=== PATIENT | male | born 1965 | race Caucasian/White ===

== ENCOUNTER 2018-01-20 06:15 | Inpatient (IN) | payer BC ==
[2018-01-05 17:00] VITALS: BMI 38.7
[2018-01-20] MEDS ORDERED: TAMSULOSIN HCL 0.4 MG CAP ONE (06:53)
[2018-01-20] MEDS ORDERED: DEXAMETHASONE SOD PHOSPHATE/PF 10 MG/ML SDV ONE (07:24)
[2018-01-20] MEDS ORDERED: BUPIVACAINE HCL/PF (5 MG/ML) 30 ML VIAL IJ ONE (07:25)
[2018-01-20] MEDS ORDERED: MIDAZOLAM HCL 2 MG/2 ML SINGLE DOSE VIAL ONE (07:25)
[2018-01-20] MEDS ORDERED: PROPOFOL 20 ML ONE ×2 (07:58)
[2018-01-20] MEDS ORDERED: SUCCINYLCHOLINE CHLORIDE 200 MG/10 ML VIAL ONE (07:58)
[2018-01-20] MEDS ORDERED: ROCURONIUM BROMIDE 50 MG/5 ML VIAL ONE ×2 (07:58→09:24)
[2018-01-20] MEDS ORDERED: ceFAZolin SODIUM 1 GM VIAL ONE (08:32)
[2018-01-20] MEDS ORDERED: HYDROmorphone HCL/PF 1 MG/ML AMP ONE (08:37)
--- NOTE | 2018-01-20 08:53 | HP ---
DATE OF ADMISSION: 01/20/2018 NOTE: This is a re-dictated H&P due to [facility] guidelines. Please refer to my original H&P dated June 2017 for complete details. The patient was re-examined this morning. No significant changes in physical exam or history. BRIEF HISTORY: This is a 52-year-old gentleman with a known chronically incarcerated ventral hernia for many years. This is causing him discomfort and now he wishes to have this repaired. PAST MEDICAL HISTORY: Significant for hypertension and arthritic changes. PAST SURGICAL HISTORY: No abdominal surgeries. MEDICATIONS: Allopurinol, hydrochlorothiazide. ALLERGIES: None. SOCIAL HISTORY: The patient does not smoke. He drinks socially. PHYSICAL EXAMINATION: Abdomen: Obese, soft, nontender, nondistended. He has diastasis in the upper midline. He has a chronically incarcerated ventral hernia in the midline as well. IMPRESSION/PLAN: Chronically incarcerated ventral hernia, complex ventral hernia. This is a 52-year-old gentleman becoming more symptomatic from his chronically incarcerated complex ventral hernia. Will plan for an open repair with mesh. Due to the size and generosity of the hernia will require component separation as well. The indications, alternatives and complications discussed. Questions answered. Will plan for surgery. KAMLA URIAS M.D. [id number] CC: Dr. De La Rosa
[2018-01-20] MEDS ORDERED: DEXAMETHASONE SOD PHOSPHATE 4 MG/1 ML VIAL ONE ×2 (08:57→10:00)
[2018-01-20] MEDS ORDERED: ONDANSETRON 4 MG/2 ML VIAL ONE ×2 (08:57→10:00)
[2018-01-20] MEDS ORDERED: GLYCOPYRROLATE 0.2 MG/1 ML VIAL ONE (09:47)
[2018-01-20] MEDS ORDERED: NEOSTIGMINE METHYLSULFATE 0.5 MG/ML - 10 ML MDV ONE (09:47)
[2018-01-20] MEDS: KETOROLAC TROMETHAMINE 30 MG/1 ML VIAL IVPUSH SCH ×3 (10:35→22:40)
[2018-01-20] MEDS ORDERED: ACETAMINOPHEN INJECTION 100 ML IVPB ONE (10:36)
[2018-01-20] MEDS ORDERED: KETOROLAC TROMETHAMINE 30 MG/1 ML VIAL ONE (10:36)
[2018-01-20] MEDS: ACETAMINOPHEN 1000 MG/100 ML VIAL (NON FORMULARY) IVPB SCH ×3 (10:37→22:38)
[2018-01-20] MEDS ORDERED: ONDANSETRON 4 MG/2 ML VIAL IVPUSH PRN (10:38)
[2018-01-20] MEDS ORDERED: morphine CARPU-JECT 10 MG/1 ML DISP.SYRIN IVPB PRN (10:38)
[2018-01-20] MEDS ORDERED: oxyCODONE HCL 5 MG TABLET PO PRN (10:38)
[2018-01-20] MEDS ORDERED: SODIUM CHLORIDE 1,000 ML IV SCH (10:45)
[2018-01-20] MEDS ORDERED: LACTATED RINGERS SOLUTION 1,000 ML IV SCH (10:45)
--- NOTE | 2018-01-20 11:13 | OP ---
DATE OF OPERATION: 01/20/2018 PREOPERATIVE DIAGNOSIS: A complex, chronically incarcerated ventral hernia. POSTOPERATIVE DIAGNOSIS: A complex, chronically incarcerated ventral hernia. PROCEDURE: Bilateral component separation, repair of complex, chronically incarcerated ventral hernia with mesh, partial omentectomy. SURGEON: Dennis Jaramillo MD [employer] ADMINISTRATOR: Sandro Pardo DO ANESTHESIA: Anju Dunog MD (general) ESTIMATED BLOOD LOSS: Minimal. SPECIMEN: Portion of omentum. None. INDICATIONS/PROCEDURE: This is a 52-year-old gentleman with a chronically incarcerated large complex ventral hernia. It is causing discomfort. He wishes to have this repaired. Patient was identified and appropriately positioned on the operating room table. After placement of general anesthesia, he was prepped and draped in the usual sterile fashion with ChloraPrep. A vertical midline incision overlying the hernia was made deep in the subcutaneous tissue. The hernia was dissected free from the subcutaneous space with blunt dissection down to the level of the fascia. The hernia was then subsequently opened at the midpoint through the sac. The hernia contained a sliding portion of the omentum. The omentum was serially clamped, divided, tied, and handed off as specimen. Ties used were 3-0 Vicryl. The fascia of the rectus muscle on the right side identified, and the posterior sheath identified, as well. The posterior sheath was subsequently divided with the cautery, and the posterior rectus space was subsequently entered. The muscles were then bluntly out laterally towards the junction. At this point, a myofascial separation was performed at the level of the transversus just medial to the perforating vessels. The perforating vessels were spared and reflected anteriorly as he fascia was subsequently divided. The transversus was from the obliques and rectus using the cautery. It was taken approximately 5 inches above and below the actual defect. Once the myofascial separation on the right side was performed, a similar approach was used on the left side. The posterior rectus space was entered by dividing the posterior rectus sheath. The space off the rectus was developed bluntly out to the perforating vessels, and the transversus fascia was scored just medial to the perforating vessels, and the myofascial separation ensued again approximately 5 inches above and below the actual defect. The defect was subsequently measured. The transversus was closed with a running locking 3-0 mesh on suture. The sutures were placed in a 4-to-1 ratio. A large 30 x 30 piece of Versatex mesh was used for the repair along with a 10 x 12 piece of Telabio. The two pieces of mesh were sewn together with interrupted 3-0 Vicryl suture. The 30 x 30 Versatex was cut down to the appropriate size approximately 20 x 20. The mesh placed into the preperitoneal space and then anchored with a multitude of interrupted AbsorbaTacks. All the AbsorbaTacks were placed under direct counter-palpation. The mesh itself was irrigated with saline. Irrigant retrieved, noted to be clear. The operative field examined, noted to be hemostatic. The fascia overlying the mesh was then reapproximated with a running locking 0 PDS suture. The subcutaneous space was irrigated. A 10 flat BAO was placed under direct vision, brought through a separate stab incision, done with a 0 silk suture. The skin was closed with osmin. At the conclusion of this case, sponge and instrument counts were correct. ATTESTATION: Brief operative note handwritten on the preprinted form. [facility] queried prior to giving any narcotics. Meghna ROCHA [id number] cc: Sandro De La Rosa MD [facility]
[2018-01-20] MEDS ORDERED: PATIENT'S OWN MEDICATION (NON-FORMULARY) (Metoprolol Tartrate [Lopressor] 100 MG) PO SCH (22:00)
[2018-01-20] MEDS: HYDROCHLOROTHIAZIDE 25 MG TABLET (FP) PO SCH (22:38)
[2018-01-20] MEDS: HYDROXYCHLOROQUINE SO4 200 MG TABLET (FP) PO SCH (22:38)
[2018-01-20] MEDS: METOPROLOL TARTRATE 50 MG TABLET (FP) PO SCH (22:38)
[2018-01-20] MEDS: ALLOPURINOL 100 MG TABLET (FP) PO SCH ×2 (22:38→22:53)
[2018-01-21] MEDS: KETOROLAC TROMETHAMINE 30 MG/1 ML VIAL IVPUSH SCH (04:45)
[2018-01-21] MEDS: ACETAMINOPHEN 1000 MG/100 ML VIAL (NON FORMULARY) IVPB SCH (04:45)
[2018-01-21 06:49] VITALS: BP 123/69; PULSE 74; TEMP 99
--- NOTE | 2018-01-21 08:47 | DS ---
DATE OF ADMISSION: 01/20/2018 DATE OF DISCHARGE: 01/21/2018 ADMITTING DIAGNOSIS: Complex incisional hernia with pre-existing gout, hypertension, arthritis. BRIEF HISTORY: This is a 52-year-old morbidly obese male with a complex incisional hernia. He was admitted to [facility] on January 20, 2018, for surgical management. He underwent repair of this incisional hernia utilizing mesh as well as component separation, myofascial release, and abdominal wall reconstruction. Please reference Dr. Dennis Jaramillo's operative note for further details. Postoperatively, he did well. He is ambulating. He is voiding. He is tolerating a liquid diet. He will go home with a new prescription for Percocet which he will take as needed for pain. He will resume his usual home medications of allopurinol, hydrochlorothiazide, Plaquenil, losartan, and Lopressor. He will follow with Dr. Jaramillo in approximately 1 week's time to be evaluated for drain removal. He will go home with a -Ramirez drain which he will record daily or when full and record the amount. He will sponge bathe only. He will not lift more than 20 pounds. He will go home on a light diet for the first few days but can eat regular food. At the time of his discharge, he is afebrile, ambulating, voiding, and tolerating diet. DO ADRIENNE COULTER/[id number]
[2018-01-21] MEDS: HYDROCHLOROTHIAZIDE 25 MG TABLET (FP) PO SCH (09:40)
[2018-01-21] MEDS: ALLOPURINOL 100 MG TABLET (FP) PO SCH (09:40)
[2018-01-21] MEDS: METOPROLOL TARTRATE 50 MG TABLET (FP) PO SCH (09:40)
[2018-01-21] MEDS: HYDROXYCHLOROQUINE SO4 200 MG TABLET (FP) PO SCH (09:40)
[2018-01-21] MEDS ORDERED: ENOXAPARIN NA (PORCINE) 40 MG/0.4 ML DISP.SYRIN SQ SCH (10:00)
[2018-01-21] MEDS ORDERED: PANTOPRAZOLE SODIUM 40 MG VIAL IVPUSH SCH (10:00)
[2018-01-21] MEDS ORDERED: LOSARTAN POTASSIUM 25 MG TABLET PO SCH (10:00)
--- NOTE | 2018-01-21 10:40 | PN ---
Progress Note (short form) - Note Progress Note: Anesthesia postop note POD#1. S/P Bilateral component separation,Ventral hernia repair Pat seen and examined. VSS. Ambulating. No apparent post anesethesiaa complications. Signed off.
--- NOTE | 2018-01-22 15:25 | PATH ---
Surgical Pathology Report Patient Name: YAJAIRA DE LEON Med. Rec. #: [id number] /Age/Gender: 1965 (Age: 52) / M Account: [id number] Location: [facility] Taken: 01/20/2018 Received: 01/20/2018 Reported: 01/22/2018 Physicians: Dennis Jaramillo Specimen(s) Received HERNIA SAC WITH PORTION OF OMENTUM Clinical History Ventral hernia Final Diagnosis HERNIA SAC WITH PORTION OF OMENTUM, EXCISION: HERNIA SAC WITH MATURE ADIPOSE TISSUE, CONSISTENT WITH OMENTUM. Electronically Signed Antony Bishop M.D. Gross Description Received in formalin labeled "hernia sac with portion of omentum," is a 4.4 x 3.7 x 3.0 cm branch-brenner, saccular portion of fibromembranous tissue with attached fat, consistent with a hernia sac. Also received within the same container is a 9.0 x 4.5 x 1.0 cm portion of yellow, lobulated adipose tissue, consistent with a portion of omentum. [employer] sections are submitted in one cassette. 01/21/201801/21/2018
== END 2018-01-21 13:00 | disposition home or self-care (01) | DRG 355 ==
LOC: FASUSAT 06:15 → FM/S 10:38
PROVIDERS: ADMIT Surgery; ATTEND Surgery
PROC: 0DBU0ZZ Excision of Omentum, Open Approach (ICD-10-PCS; 2018-01-20)
PROC: 0WUF0JZ Supplement Abdominal Wall with Synthetic Substitute, Open Approach (ICD-10-PCS; principal; 2018-01-20 08:00)
DX: K43.6 Other and unspecified ventral hernia with obstruction, without gangrene (principal); I10 Essential (primary) hypertension
CPT/HCPCS: 88302-TC; 94660; 94760; J0131